=== PATIENT | female | born 2005 | race Caucasian/White ===

== ENCOUNTER → 2024-04-24 | Outpatient (CLI) | payer OTHER ==
[2024-04-27 06:02] LABS: CORTISOL,U FREE - RATIO TO CRT 18.06 ug/g CRT; CORTISOL,URINE FREE - PER 24H 23.4 ug/d (<=45.0); CREATININE,URINE - PER 24H 1296 mg/d (700-1600); CREATININE,URINE - PER VOLUME 144 mg/dL; HOURS COLLECTED 24 hr; TOTAL VOLUME 900 mL
== END ==
LOC: LAB 06:24 → LAB SHORT 06:24
PROVIDERS: Family Medicine
DX: R29.818 Other symptoms and signs involving the nervous system (principal)
CPT/HCPCS: 81050; 82530

== ENCOUNTER → 2025-06-22 | Outpatient (CLI) | payer OTHER ==
[2025-06-22 15:43] LABS: Bacterial Vaginosis PCR Negative (NEGATIVE); Candida glabrata-krusei, PCR NOT DETECTED (NOT DETECT)
[2025-06-22 15:45] LABS: Candida Group, PCR DETECTED (NOT DETECT)
== END | disposition home or self-care (01) ==
LOC: LAB SHORT 13:16 → LAB 13:16
PROVIDERS: Obstetrics & Gynecology
DX: Z01.419 Encounter for gynecological examination (general) (routine) without abnormal findings (principal); E28.2 Polycystic ovarian syndrome; N89.8 Other specified noninflammatory disorders of vagina
CPT/HCPCS: 81515; G0145